=== PATIENT | male | born 1965 | race Caucasian/White ===

== ENCOUNTER 2016-08-19 19:18 | Emergency (ER) | payer MEDICARE, BC ==
--- NOTE | 2016-08-19 19:48 | Emergency Department Record ---
History of Present Illness - General Chief Complaint: Chest Pain Stated Complaint: JAW,L ARM,GROIN,BACK PAIN Time Seen by Provider: 08/19/16 19:41 Source: Patient Mode of Arrival: Ambulatory Limitations: No limitations - History of Present Illness Initial Comments: 51 yo male presents with 3 days of symptoms that include pain from his left jaw and shoulder down to his right back and groin to the penis. He reports jaw pain on the left and left sided shoulder pain with occasional radiation to the left anterior shoulder and pain between the shoulder blades. No cough or shortness of breath. The pain on the left side of the shoulder and back radiate to the right flank and groin to the penis. NO pain in the penis with voiding. No fevers. No history of CAD. He is a smoker with a family history of CAD. He has HTN. He has undergone multiple stress tests in the last few years that have been negative. He does not follow with a specific cook boat. He has seen more than one in the past. He had a heart cath that was normal as well. MD Complaint: Chest pain Onset/Timin -: Days(s) Pain Location: Left chest Pain Radiation: LUE Severity: Moderate Severity scale (1-10): 4 Quality: Sharp Consistency: Constant, Getting worse Improves With: Nothing Worsens With: Nothing Anginal Symptoms: Diaphoresis, Nausea - Related Data Home Medications Medication Instructions Recorded Confirmed Last Taken Lisinopril [Lisinopril] 20 mg PO DAILY 08/19/16 08/19/16 Unknown Oxycodone HCl/Acetaminophen 1 tab PO Q6H PRN 08/19/16 08/19/16 Unknown [Percocet 7.5mg/325mg] Allergies Allergy/AdvReac Type Severity Reaction Status Date / Time No Known Drug Allergies Allergy Verified 08/19/16 19:23 Travel Screening - Travel/Exposure Within Last 30 Days Have you traveled within the last 30 days?: No Review of Systems Constitutional: Denies: Chills, Fever, Malaise, Weakness Eyes: Denies: Eye discharge ENT: Denies: Congestion, Ear pain, Throat pain Respiratory: Denies: Cough, Dyspnea, Hemoptysis, Stridor, Wheezes Cardiovascular: Reports: Chest pain (left anterior shoulder). Denies: Dyspnea on exertion, Edema, Orthopnea, Palpitations, Syncope Endocrine: Denies: Fatigue, Polydipsia, Polyuria Gastrointestinal: Reports: Abdominal pain (groin on the right). Denies: Diarrhea, Nausea, Vomiting Genitourinary: Reports: Other (Penis pain). Denies: Discharge, Dysuria, Frequency, Hematuria, Retention, Testicular pain, Testicular mass, Urgency Musculoskeletal: Reports: Back pain. Denies: Arthralgia, Joint swelling, Myalgia Skin: Denies: Bruising, Change in color, Rash Neurological: Denies: Confusion, Headache, Numbness, Weakness Psychiatric: Denies: Anxiety Hematological/Lymphatic: Denies: Blood Clots, Easy bleeding, Easy bruising, Swollen glands Past Medical History - SOCIAL HISTORY Smoking Status: Current every day smoker Alcohol Use: None Drug Use: None - RESPIRATORY Hx Respiratory Disorders: No - CARDIOVASCULAR Hx Cardio Disorders: Yes Hx Cardiac Cath: Yes (1999) - NEURO Hx Neuro Disorders: No - GI Hx GI Disorders: Yes Hx Reflux: Yes - Hx Genitourinary Disorders: No - ENDOCRINE Hx Endocrine Disorders: No - MUSCULOSKELETAL Hx Musculoskeletal Disorders: No - PSYCH Hx Psych Problems: No - HEMATOLOGY/ONCOLOGY Hx Hematology/Oncology Disorders: No Family Medical History Any Significant Family History?: Yes *Diabetes Comment: uncle, aunt Hx Heart Disease: Grandparents Physical Exam - General General Appearance: Alert, Oriented x3, Cooperative, No acute distress Limitations: No limitations - Head Head exam: Atraumatic, Normocephalic, Normal inspection - Eye Eye exam: Normal appearance, PERRL. negative: Conjunctival injection, Periorbital swelling - ENT ENT exam: Normal exam, Mucous membranes moist Ear exam: Normal external inspection Nasal Exam: Normal inspection Mouth exam: Normal external inspection Teeth exam: Normal inspection Throat exam: Normal inspection - Neck Neck exam: Normal inspection, Full ROM, Tenderness (posterior neck tenderness, no mass, full). negative: Lymphadenopathy - Respiratory Respiratory exam: Normal lung sounds bilaterally. negative: Accessory muscle use, Respiratory distress, Rhonchi, Stridor, Wheezes - Cardiovascular Cardiovascular Exam: Regular rate, Normal rhythm, Normal heart sounds. negative : Tachycardia Peripheral Pulses: 2+: Radial (R), Radial (L) - GI/Abdominal GI/Abdominal exam: Soft. negative: Distended, Guarding, Hernia, Rigid, Tenderness - Rectal Rectal exam: Deferred - Extremities Extremities exam: Normal inspection, Full ROM, Normal capillary refill. negative: Tenderness - Back Back exam: Reports: Normal inspection, CVA tenderness (R) (low lumbar), Full ROM. Denies: Muscle spasm, Rash noted, Tenderness - Neurological Neurological exam: Alert, Normal gait, Oriented X3. negative: Altered, Motor sensory deficit - Psychiatric Psychiatric exam: Normal affect, Normal mood - Skin Skin exam: Dry, Intact, Normal color, Warm Course Vital Signs 08/19/16 19:24 Pulse Rate 84 Respiratory 18 Rate Blood Pressure 154/86 Pulse Ox 96 - Reevaluation(s) Reevaluation #1: EKG 19:21 NSR rate 84, intervals normal, mild left axis, ST no acute changes. 08/19/16 19:41 Reevaluation #2: The CT scan was negative for acute process He does have a small fat containing hernia in the right inguinal and right umbilical. 08/19/16 22:37 Reevaluation #3: I explained the test results with the patient His symptoms are some what atypical with pain from the left shoulder, back, right side to the penis He has had multiple negative stress tests per him and a normal heart cath in the past. I did offer overnight observation with consultation with our cook boat tomorrow. He declined. He will return if the pain returns and call one of his prior cardiologists tomorrow. 08/19/16 22:47 Procedures - EKG Initial Date: 08/19/16 Time: 19:21 EKG: No Acute Changes, Normal EKG, Unchanged From Previous EKG Detail: Rate 84, normal intervals, leftward axis, normal ST. Medical Decision Making - Lab Data Result diagrams: 08/19/16 19:25 08/19/16 19:25 Disposition Disposition: Discharge Clinical Impression: Shoulder pain, acute Qualifiers: Laterality: left Qualified Code(s): M25.512 - Pain in left shoulder Back pain Qualifiers: Back pain location: thoracic back pain Chronicity: acute Back pain laterality: left Qualified Code(s): M54.6 - Pain in thoracic spine Disposition: Home, Self-Care Condition: (1) Good Instructions: Chest Pain (ED) Additional Instructions: Return to the ER if you have any return of pain Call your family doctor's office tomorrow and one of your prior cardiologists for close follow up. Forms: Patient Portal Access Time of Disposition: 22:49
[2016-08-19 20:58] LABS: URINE APPEARANCE CLEAR; URINE BILIRUBIN NEGATIVE (NEGATIVE); URINE BLOOD NEGATIVE (NEGATIVE); URINE COLOR YELLOW; URINE GLUCOSE (UA) NEGATIVE (NEGATIVE); URINE KETONE NEGATIVE (NEGATIVE); URINE LEUKOCYTE ESTERASE NEGATIVE (NEGATIVE); URINE NITRITE NEGATIVE (NEGATIVE); URINE PROTEIN NEGATIVE (NEGATIVE)
[2016-08-19 20:58] LABS: BASO % 0.3 % (0-6); EOS % 3.5 % (0-6); GRAN % 52.7 % (47-80); HEMATOCRIT 46.4 % (42.0-52.0); HEMOGLOBIN 15.4 gm/dl (14.0-18.0); LYMPH % 32.8 % (16-45); MEAN CELL VOLUME 87.2 fl (81-97); MEAN CORPUSCULAR HEMOGLOBIN 28.9 pg (27-33); MEAN CORPUSCULAR HGB CONC 33.2 g/dl (32-36); MEAN PLATELET VOLUME 11.3 fl (7.4-10.4); MONO % 10.7 % (0-9); PLATELET COUNT 255 K/uL (130-400); RED BLOOD COUNT 5.32 M/uL (4.40-5.70); RED CELL DISTRIBUTION WIDTH 13.7 % (11.5-14.5); WHITE BLOOD COUNT W/O DIFF 11.2 K/uL (4.2-12.2)
[2016-08-19 21:09] LABS: ANION GAP 6.8 (7-16); BLOOD UREA NITROGEN 18 mg/dL (9-20); CARBON DIOXIDE 25.2 mmol/L (22-30); CREATININE 0.9 mg/dL (0.66-1.25); EST GLOMERULAR FILTRATION RATE > 60 ml/min
[2016-08-19 21:13] LABS: D-DIMER 0.42 mg/L FEU (0-0.59); INR 0.91; PARTIAL THROMBOPLASTIN TIME 27.1 SECONDS (24.5-39.1); PROTHROMBIN TIME (PATIENT) 10.3 SECONDS (9.5-12.1)
[2016-08-19 21:14] LABS: GLUCOSE,RANDOM 88 mg/dL (70-110)
[2016-08-19 21:22] LABS: TROPONIN I < 0.012 ng/mL (0.00-0.034)
[2016-08-19 21:29] LABS: CKMB 1.4 ng/mL (0-4.3)
== END 2016-08-19 23:25 | disposition home or self-care (01) ==
LOC: ER 19:18
DX: M54.6 Pain in thoracic spine (principal); M25.512 Pain in left shoulder; R10.31 Right lower quadrant pain; R07.9 Chest pain, unspecified; R11.0 Nausea; R61 Generalized hyperhidrosis; N48.89 Other specified disorders of penis; I10 Essential (primary) hypertension; F17.210 Nicotine dependence, cigarettes, uncomplicated
CPT/HCPCS: 99284 ×2; 85025; 85730; 85610; 82553; 84484; 80048; 81003; 85379; 71275; 74174; 93005; 93010; Q9967